=== PATIENT | female | born 1950 | race African-American/Black ===

== ENCOUNTER 2017-01-12 00:26 | Observation (INO) | payer MEDICARE, OTHER ==
[~2017-01-12] VITALS: Ht 160 cm; Wt 94.4 kg
[~2017-01-12 00:26] MED LIST: ACIPHEX; ALBU17AE26; ATEN50TA; FLUT1DIS; MELO-106 PO; NIFEDIPINE; OLME1TAB17; ROSU10TA
[2017-01-12] MEDS ORDERED: ASPIRIN 81MG TABLET PO ONE (02:00)
[2017-01-12 02:29] LABS: BASOPHILS % 0.8 % (0.0-2.0); EOSINOPHILS % 3.5 % (0.0-5.0); HEMATOCRIT. 38.4 % (36.0-48.0); HEMOGLOBIN. 12.6 g/dL (12.0-16.0); LYMPHOCYTES % 20.7 % (20.0-50.0); MEAN CORPUSCULAR HEMOGLOBIN 30.4 pg (28.0-32.0); MEAN CORPUSCULAR VOLUME 92.5 fL (81.0-99.0); MEAN PLATELET VOLUME 9.6 fl (7.4-10.4); MONOCYTES % 10.1 % (2.0-8.0); NEUTROPHILS % 64.9 % (40.0-76.0); PLATELET 210 x1000/uL (130-400); RED BLOOD CELL COUNT 4.15 mill/uL (4.2-5.4)
[2017-01-12 02:42] LABS: CARBON DIOXIDE 31 mEq/L (21-32); CHLORIDE 102 mEq/L (98-107); TROPONIN I 0.17 ng/mL (0.00-0.04)
[2017-01-12] MEDS ORDERED: FUROSEMIDE 40MG/4ML VIAL IVP SCH (04:00)
[2017-01-12] MEDS ORDERED: KCL 20MEQ/100ML PREMIX 100 ML IV SCH (04:33)
[2017-01-12] MEDS ORDERED: IOHEXOL-350 100 ML BOTTLE ONE (08:35)
[2017-01-12 10:00] VITALS: BP 127/69
[2017-01-12] MEDS ORDERED: APIX5TAB PO (10:06)
[2017-01-12] MEDS ORDERED: LOSA25TA12 PO (10:08)
[2017-01-12] MEDS ORDERED: LOSARTAN POTASSIUM 50 MG TABLET PO SCH (11:00)
[2017-01-12 11:14] VITALS: BP 127/69
[2017-01-12 16:00] VITALS: BP 144/88
[2017-01-12 16:04] LABS: CREATINE KINASE MB FRACTION 2.3 ng/mL (0.5-3.6); TROPONIN I 0.17 ng/mL (0.00-0.04)
[2017-01-12] MEDS ORDERED: POTASSIUM CHLORIDE 20MEQ TABLET SR PO NR (17:15)
[2017-01-12] MEDS ORDERED: APIXABAN 5 MG TABLET PO SCH (17:15)
[2017-01-12 17:22] VITALS: BP 144/88
[2017-01-12] MEDS ORDERED: ATENOLOL 25MG TABLET PO SCH (21:00)
[2017-01-13] MEDS ORDERED: FUROSEMIDE 40MG/4ML VIAL IVP SCH (09:00)
== END 2017-01-12 17:59 | disposition home or self-care (01) ==
LOC: ER 00:26 → INTOOBSV 04:21 → 5WST 04:21 → ENRESERV 06:49
PROVIDERS: ADMIT Internal Medicine; ATTEND Internal Medicine
DX: M79.89 Other specified soft tissue disorders (principal); I10 Essential (primary) hypertension; I48.91 Unspecified atrial fibrillation; E87.6 Hypokalemia; E66.9 Obesity, unspecified; J45.909 Unspecified asthma, uncomplicated; E78.00 Pure hypercholesterolemia, unspecified; I50.9 Heart failure, unspecified; Z82.71 Family history of polycystic kidney; Z86.73 Personal history of transient ischemic attack (TIA), and cerebral infarction without residual deficits
CPT/HCPCS: 36415; 71010; 71275; 80053; 82550; 82553; 83880; 84484; 85025; 85379; 93005; 93970; 96365; 96366; 96375; 99285; G0378; J1940; J3480; Q9967